=== PATIENT | male | born 2000 | race Caucasian/White ===

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

== ENCOUNTER 2020-10-27 23:00 | Emergency (ER) | payer SELFPAY ==
[2020-10-27] MEDS ORDERED: Sodium Chloride 0.9% 500 ML IV ONE (23:05)
[2020-10-27] MEDS ORDERED: Famotidine 20 MG/2 ML SDV IVPUSH ONE (23:05)
[2020-10-27] MEDS ORDERED: Ondansetron 4 MG/2 ML SDV IVPUSH ONE (23:05)
[2020-10-27] MEDS ORDERED: Sodium Chloride 0.9% 10 ML Syringe FLUSH PRN (23:05)
--- NOTE | 2020-10-27 23:09 | EDM.PDOC ---
ED HPI GENERAL MEDICAL PROBLEM - General Stated Complaint: MEDICAL VIA [facility] Time Seen by Provider: 10/27/20 23:00 Source of Information: Reports: Patient, EMS History Limitations: Reports: No Limitations - History of Present Illness INITIAL COMMENTS - FREE TEXT/NARRATIVE: Patient presents the emergency room via EMS secondary to a shaking episode that resulted in a syncope. Patient states he has not been feeling his normal self today he did take Tylenol around 1730 secondary to fevers and chills. He does work at [employer] he did go to work this afternoon around 330 despite not feeling well. He was noted during transport by EMS to have a nausea and vomiting episode. Patient states he has not had Covid infection nor has he had the immunization PMHchronic low back pain, obesity Medspatient states states he takes acetaminophen for his back pain on occasion Drug allergies include Augmentin and azithromycin Patient denies any tobacco or illicit drug usage EtOHoccasional Onset: Today Generalized Pain Score (Numeric/FACES): 2 - Related Data Allergies Allergy/AdvReac Type Severity Reaction Status Date / Time amoxicillin trihydrate Allergy Rash Verified 03/15/18 09:24 [From Augmentin] azithromycin Allergy Rash Verified 03/15/18 09:24 fluconazole Allergy Rash Verified 03/15/18 09:24 potassium clavulanate Allergy Rash Verified 03/15/18 09:24 [From Augmentin] Home Meds: Home Meds NK [No Known Home Meds] 10/27/20 [History] Past Medical History HEENT History: Reports: Impaired Vision Respiratory History: Reports: Asthma Gastrointestinal History: Reports: Chronic Constipation, Other (See Below) Neurological History: Reports: Headaches, Chronic Psychiatric History: Reports: Depression Endocrine/Metabolic History: Reports: Obesity/BMI 30+ - Past Surgical History Head Surgeries/Procedures: Reports: None HEENT Surgical History: Reports: Tonsillectomy Respiratory Surgical History: Reports: None GI Surgical History: Reports: None Neurological Surgical History: Reports: None Dermatological Surgical History: Reports: None Social & Family History - Caffeine Use Caffeine Use: Reports: Soda ED ROS GENERAL - Review of Systems Review Of Systems: Comprehensive ROS is negative, except as noted in HPI. Constitutional: Reports: Fever, Chills GI/Abdominal: Reports: Nausea, Vomiting Neurological: Reports: Syncope, Weakness ED EXAM, GENERAL - Physical Exam Exam: See Below Exam Limited By: No Limitations General Appearance: Alert, WD/WN, Moderate Distress (Patient noted to be significant febrile T104 with shaking chills at this time he also has vomitus d own the front of him secondary to emesis that occurred during EMS transport), Obese Eye Exam: Bilateral Eye: EOMI, Normal Inspection, PERRL Ears: Normal External Exam, Hearing Grossly Normal Nose: Normal Inspection Throat/Mouth: Normal Inspection, Normal Lips, Normal Voice, No Airway Compromise Head: Atraumatic, Normocephalic Neck: Normal Inspection, Supple, Non-Tender, Full Range of Motion. No: Lymphadenopathy (R), Lymphadenopathy (L) Respiratory/Chest: No Respiratory Distress, Lungs Clear, Normal Breath Sounds Cardiovascular: Normal Peripheral Pulses, Regular Rate, Rhythm, No Edema, No Murmur Peripheral Pulses: 2+: Radial (L), Radial (R) GI/Abdominal: Normal Bowel Sounds, Soft, Non-Tender. No: Guarding, Rigid, Rebound (Male) Exam: Deferred Rectal (Males) Exam: Deferred Back Exam: Normal Inspection, Full Range of Motion (Patient sat up unassisted on ER gurney for posterior exam of lungs sounds as well as back range of motion) Extremities: Normal Inspection, Normal Range of Motion, No Pedal Edema, Normal Capillary Refill Neurological: Alert, Oriented, Normal Cognition, No Motor/Sensory Deficits Psychiatric: Normal Affect, Normal Mood Skin Exam: Warm, Dry, Intact, Normal Color Course - Vital Signs Text/Narrative:: 0032--patient COVID test returned negative. in to check on status, he feels somewhat improved after getting medication/IVF started. offered further testing, he would like labs completed at this time for further evaluation. orders entered to include CBC, BMP, strep and influenza testing 0106--labs that have returned at this time to include WBC10.3 which is normal although he has a noted elevated neutrophil count of 70% sodium was mildly decreased at 138 patient has received an IV fluid bolus as well is a mildly elevated anion gap of 15 in the setting of a normal creatinine of 1.0. As already noted Covid testing is negative influenza and strep testing are pending at this time 0132--lactic acid has returned at 1.8/negative; influenza and strep screen negative. patient is feeling somewhat improved. no focal findings at this time. will d/c with PCM follow up or return to the ER if worsening symptoms of concern for further evaluation. ensure drinking plenty of fluids, getting plenty of rest, no return to work until no longer having elevated temperatures/using acetaminophen or ibuprofen for temps/fevers/chills and tolerating regular diet/activity. viral illness may last 7-10 days, handwashing all times. ready for d/c Last Recorded V/S: Last Vital Signs Temp 101.9 F H 10/28/20 00:53 Pulse 53 L 10/28/20 00:53 Resp 19 10/28/20 00:53 BP 162/73 H 10/28/20 00:53 Pulse Ox 94 L 10/28/20 00:53 - Orders/Labs/Meds Orders: Active Orders 24 hr Category Date Time Status INFLUENZA A+B AG SCREEN [RM] Stat Lab 10/28/20 00:49 Ordered Sodium Chloride 0.9% [Saline Flush] Med 10/27/20 23:05 Active 10 ml FLUSH ASDIRECTED PRN Isolation [COMM] Routine Oth 10/28/20 00:31 Ordered Saline Lock Insert [OM.PC] Routine Oth 10/27/20 23:05 Ordered Medication Orders Sodium Chloride (Sodium Chloride 0.9% 10 Ml Syringe) 10 ml FLUSH ASDIRECTED PRN PRN Reason: Keep Vein Open Last Admin: 10/27/20 23:48 Dose: 10 ml Documented by: MAXIMO Labs: Laboratory Tests 10/27/20 10/28/20 10/28/20 Range/Units 23:05 00:05 00:05 WBC 10.3 (4.5-11.0) K/uL RBC 4.62 (4.30-5.90) M/uL Hgb 13.9 (12.0-15.0) g/dL Hct 41.6 (40.0-54.0) % MCV 90 (80-98) fL MCH 30 (27-31) pg MCHC 33 (32-36) % Plt Count 397 (150-400) K/uL Add Manual Diff Yes Neutrophils % (Manual) 70 H (36-66) % Band Neutrophils % 7 (5-11) % Lymphocytes % (Manual) 11 L (24-44) % Monocytes % (Manual) 9 H (2-6) % Eosinophils % (Manual) 3 (2-4) % Sodium 138 L (140-148) mmol/L Potassium 4.0 (3.6-5.2) mmol/L Chloride 102 (100-108) mmol/L Carbon Dioxide 25 (21-32) mmol/L Anion Gap 15.0 H (5.0-14.0) mmol/L BUN 18 (7-18) mg/dL Creatinine 1.0 (0.8-1.3) mg/dL Est Cr Clr Drug Dosing TNP Estimated GFR (MDRD) > 60 (>60) Glucose 114 H (74-106) mg/dL Lactic Acid (0.4-2.0) mmol/L Calcium 8.7 (8.5-10.1) mg/dL SARS-CoV-2 RNA (GERTRUDIS) Negative (NEGATIVE) 10/28/20 Range/Units 00:44 WBC (4.5-11.0) K/uL RBC (4.30-5.90) M/uL Hgb (12.0-15.0) g/dL Hct (40.0-54.0) % MCV (80-98) fL MCH (27-31) pg MCHC (32-36) % Plt Count (150-400) K/uL Add Manual Diff Neutrophils % (Manual) (36-66) % Band Neutrophils % (5-11) % Lymphocytes % (Manual) (24-44) % Monocytes % (Manual) (2-6) % Eosinophils % (Manual) (2-4) % Sodium (140-148) mmol/L Potassium (3.6-5.2) mmol/L Chloride (100-108) mmol/L Carbon Dioxide (21-32) mmol/L Anion Gap (5.0-14.0) mmol/L BUN (7-18) mg/dL Creatinine (0.8-1.3) mg/dL Est Cr Clr Drug Dosing Estimated GFR (MDRD) (>60) Glucose (74-106) mg/dL Lactic Acid 1.8 (0.4-2.0) mmol/L Calcium (8.5-10.1) mg/dL SARS-CoV-2 RNA (GERTRUDIS) (NEGATIVE) Meds: Medications Generic Name Dose Route Start Last Admin Trade Name Freq PRN Reason Stop Dose Admin Sodium Chloride 10 ml 10/27/20 23:05 10/27/20 23:48 Sodium Chloride 0.9% 10 Ml Syringe FLUSH 10 ml ASDIRECTED PRN Administration Keep Vein Open Discontinued Medications Generic Name Dose Route Start Last Admin Trade Name Caity PRN Reason Stop Dose Admin Acetaminophen 1,000 mg 10/27/20 23:43 10/27/20 23:53 Acetaminophen 500 Mg Tab PO 10/27/20 23:44 1,000 mg ONETIME ONE Administration Famotidine 20 mg 10/27/20 23:05 10/27/20 23:46 Famotidine 20 Mg/2 Ml Sdv IVPUSH 10/27/20 23:06 20 mg ONETIME ONE Administration Sodium Chloride 500 mls @ 500 mls/hr 10/27/20 23:05 10/27/20 23:47 Normal Saline IV 10/28/20 00:04 500 mls/hr .BOLUS ONE Administration Ondansetron HCl 4 mg 10/27/20 23:05 10/27/20 23:47 Ondansetron 4 Mg/2 Ml Sdv IVPUSH 10/27/20 23:06 4 mg ONETIME ONE Administration Departure - Departure Time of Disposition: 01:36 Disposition: Home, Self-Care 01 Clinical Impression: Fever and chills, Viral illness, Dehydration, Nausea & vomiting - Discharge Information *PRESCRIPTION DRUG MONITORING PROGRAM REVIEWED*: Not Applicable *COPY OF PRESCRIPTION DRUG MONITORING REPORT IN PATIENT PATT: Not Applicable Instructions: Nausea and Vomiting, Adult, [id number], Dehydration, Adult, [id number], Fever, Adult, [id number] Referrals: PCP,None [Primary Care Provider] - Additional Instructions: You may use acetaminophen (Tylenol) and/or ibuprofen (Motrin, Advil) for fever/chills/body aches as needed, follow over the counter label directions Ensure you are drinking plenty of fluids--water, juice, sports drinks of choice to stay well hydrated. Additional fluids measures include popcicles, jello, and soups. When you are feeling better your appetite will improve--start slowly with bland diet Wash your hands frequently, wipe down surfaces in your house (counters, sinks, tables) with lysol or other disinfectant wipes You should not return to work until you are no longer having elevated temperatures/fevers--this may take 7-10 days for a viral illness to resolve Follow up with your family doctor/primary care provider if you have any further concerns; return to the ER if your symptoms are worsening in nature for repeat evaluation Sepsis Event Note (ED) - Focused Exam Vital Signs: Vital Signs Temp Pulse Resp BP Pulse Ox 10/28/20 00:53 101.9 F H 53 L 19 162/73 H 94 L 10/28/20 00:21 103.3 F H 111 H 16 122/49 L 98 10/27/20 23:51 103.0 F H 117 H 15 135/51 L 98 10/27/20 23:15 104.7 F H 121 H 20 146/78 H 95 - My Orders Last 24 Hours: My Active Orders 10/27/20 23:05 Sodium Chloride 0.9% [Saline Flush] 10 ml FLUSH ASDIRECTED PRN Saline Lock Insert [OM.PC] Routine 10/28/20 00:31 Isolation [COMM] Routine 10/28/20 00:49 INFLUENZA A+B AG SCREEN [RM] Stat - Assessment/Plan Last 24 Hours: My Active Orders 10/27/20 23:05 Sodium Chloride 0.9% [Saline Flush] 10 ml FLUSH ASDIRECTED PRN Saline Lock Insert [OM.PC] Routine 10/28/20 00:31 Isolation [COMM] Routine 10/28/20 00:49 INFLUENZA A+B AG SCREEN [RM] Stat
[2020-10-27] MEDS ORDERED: Acetaminophen 500 MG Tab PO ONE (23:43)
[2020-10-28 03:08] VITALS: BP 95/34; PULSE 108
== END 2020-10-28 01:54 | disposition home or self-care (01) ==
LOC: JP.ED 23:00
DX: E86.0 Dehydration (principal); B34.9 Viral infection, unspecified; J45.909 Unspecified asthma, uncomplicated; E66.9 Obesity, unspecified; Z68.41 Body mass index [BMI] 40.0-44.9, adult; Z88.0 Allergy status to penicillin; Z88.1 Allergy status to other antibiotic agents; Z88.8 Allergy status to other drugs, medicaments and biological substances; Z20.822 Contact with and (suspected) exposure to COVID-19
CPT/HCPCS: 36415; 80048; 83605; 85025; 87081; 87635; 87804; 87880; 96374; 96375; 99284; A9270; J2405; J3490; J7040; U0002

== ENCOUNTER 2021-09-03 07:28 | Emergency (ER) | payer MEDICAID, OTHER ==
[2021-09-03 07:46] VITALS: BP 153/78; PULSE 57
== END 2021-09-03 08:11 | disposition home or self-care (01) ==
LOC: JP.ED 07:28
DX: K04.7 Periapical abscess without sinus (principal); E66.9 Obesity, unspecified; Z68.32 Body mass index [BMI] 32.0-32.9, adult; Z79.899 Other long term (current) drug therapy; Z88.0 Allergy status to penicillin; Z88.8 Allergy status to other drugs, medicaments and biological substances
CPT/HCPCS: 99281; 99282

== ENCOUNTER 2022-09-20 07:32 | Day surgery (SDC) | payer OTHER ==
[2022-09-20] MEDS ORDERED: Sodium Chloride 0.9% 1,000 ML IV SCH (08:00)
[2022-09-20] MEDS ORDERED: Propofol 200 MG/20 ML SDV ONE ×2 (08:13→08:47)
[2022-09-20] MEDS ORDERED: Midazolam 1 MG/ML 2 ML SDV ONE (08:13)
[2022-09-20] MEDS ORDERED: fentaNYL 100 MCG/2 ML SDV ONE (08:13)
[2022-09-20 11:17] VITALS: BP 125/54; PULSE 66
== END 2022-09-20 11:20 | disposition home or self-care (01) ==
LOC: JP.SDS 07:32
PROVIDERS: ATTEND Surgery
DX: K50.90 Crohn's disease, unspecified, without complications (principal); K52.9 Noninfective gastroenteritis and colitis, unspecified; F90.9 Attention-deficit hyperactivity disorder, unspecified type; J45.909 Unspecified asthma, uncomplicated; R73.03 Prediabetes; E66.9 Obesity, unspecified; Z88.0 Allergy status to penicillin; Z88.1 Allergy status to other antibiotic agents; Z88.8 Allergy status to other drugs, medicaments and biological substances
CPT/HCPCS: 45380; 88305; J2250; J2704; J3010; J7030